=== PATIENT | female | born 1985 | race Caucasian/White ===

== ENCOUNTER 2024-11-23 21:29 | Emergency (ER) | payer BC, SELFPAY ==
[2024-11-23 21:31] VITALS: BP 182/105
[2024-11-23 22:00] VITALS: BP 157/98
[2024-11-23 23:21] VITALS: BP 138/108
[2024-11-23 23:40] VITALS: BMI 23.7
[2024-11-23 23:47] LABS: Hematocrit 43.9 % (37.0-47.0); Hemoglobin 15.2 g/dL (12.0-16.0); Mean Corp Hgb Conc. 34.6 g/dL (33.0-37.0); Mean Corpuscular Volume 87.5 fL (81.0-99.0); Nucleated Red Blood Cells % 0 %; Platelet Count 280 10^3/uL (130-400); Red Cell Dist. Width 11.4 % (11.5-14.5)
[2024-11-23 23:59] LABS: ALT (SGPT) 16 U/L (0-35); AST (SGOT) 16 U/L (14-36); Albumin 4.7 g/dl (3.5-5.0); Alkaline Phosphatase 73 U/L (38-126); Blood Urea Nitrogen 17 mg/dl (7-17); Calcium 9.9 mg/dl (8.4-10.2); Carbon Dioxide 25 mmol/L (22-30); Chloride 106 mmol/L (98-107); Estimated Creatinine Clearance 62 ml/min; Glucose 97 mg/dl (70-99); Potassium 4.0 mmol/L (3.5-5.1); Sodium 137 mmol/L (135-145); Total Protein 7.0 g/dl (6.3-8.2); eGFR > 60.00
[2024-11-24 00:04] VITALS: BP 116/102
[2024-11-24 00:20] VITALS: BP 152/96
[2024-11-24 01:06] VITALS: BP 134/92
--- NOTE | 2024-11-24 01:14 | ED.GENMED ---
History of Present Illness
General
Chief Complaint: Headache
Source: patient
Time Seen by Provider: 11/24/24 00:03
History of Present Illness
History of Present Illness:
38-year-old female with past medical history of migraines and hypertension presenting to the ER for evaluation after she was experiencing a right sided frontal headache throughout the day today, went home and was watching television with her
children when she developed blurred vision out of the left eye which lasted for around an hour, has since subsided and is asymptomatic otherwise. Patient states that she took her blood pressure and noticed that it was significantly elevated which
is why she decided to come to the ER this evening. She notes that she is on Nebivolol daily and reports good compliance with this. She states that her elevated blood pressures started when she was and despite not being any longer
remained hypertensive. She denies any chest pain, shortness of breath, focal weakness or numbness, neck pain or stiffness, fevers or infectious symptoms.
Past History
Past History
ED Past Medical History: Asthma (Allergie induced), GERD, HTN and Other (IBS, Migraines, PNA,)
ED Past Surgical History: Orthopedic
Social History
Tobacco: Non-smoker
Alcohol: Occasional
Drug: None
Personal:
Living: with family
Review of Systems
Review of Systems
All Other Systems: ROS reviewed and negative except as documented in HPI and ROS
Phy Exam
Physical Exam
Physical Exam:
GENERAL: Alert , in no apparent distress
VITAL SIGNS: Repeat blood pressure 156/92 at time of my exam
HEAD: Normocephalic atraumatic
EYE: conjunctiva clear, pupils 4mm, EOMI, gross vision intact
NECK: Supple
ENT: o/p clr, mmm.
CARDIAC: Regular rate and rhythm
LUNGS: Clear breath sounds bilaterally, no acute respiratory distress, no wheezes/rales/rhonchi
NEUROLOGICAL: Alert and oriented
SKIN: Warm and dry, skin intact.
MUSCULOSKELETAL: well perfused.
PSYCH: Normal and appropriate interaction.
Scores
Heart Failure Risk
Heart Failure Risk Score: Not Applicable
Heart Score for Chest Pain Patients
STEMI patient?: Not applicable
Withdrawal Assessment of Alcohol
Withdrawal Assessment Completed?: Not applicable
Course
Orders/Labs/Results
Orders:
Orders
11/23/24 21:36
EKG [Electrocardiogram (*1)] Urgent
Reason for Study: Hypertension, Benign
EKG- Treatment ONCE
11/23/24 23:31
Complete Blood Count/With Diff Urgent
Comprehensive Metabolic Panel Urgent
11/24/24 00:24
CT Head W/o Iv Contrast Urgent
Comment:
Reason For Exam: headache, right sided, left vision change, HTN
Abnormal Lab Results
11/23/24
23:31
RDW 11.4 L %
(11.5-14.5)
Creatinine 1.1 H mg/dL
(0.6-1.0)
11/23/24 23:31
11/23/24 23:31
Vital Signs
Initial and Last Documented VS:
Initial Vital Signs
Temp Pulse Resp BP Pulse Ox
98.5 F 72 17 182/105 100
11/23/24 21:31 11/23/24 21:31 11/23/24 21:31 11/23/24 21:31 11/23/24 21:31
Last Documented Vital Signs
Temp Pulse Resp BP Pulse Ox
98.5 F 63 17 134/92 100
11/23/24 21:31 11/24/24 00:35 11/24/24 00:35 11/24/24 01:06 11/24/24 01:20
MDM/Problems Addressed
Differential Diagnosis Includes:
HTN urgency
HTN emergency
CVA/TIA
Seizure
ICH
Uncontrolled HTN
Renal dysfunction
ACS
MDM/Problems Addressed:
38-year-old female presents the ER for evaluation after she experienced a normal right-sided frontal headache for her but this evening developed transient left eye blurriness, was noted to be very hypertensive at that time. Patient arrives to the
ER still hypertensive but at time of my exam her blood pressure had significantly improved and symptoms are now resolved. Labs initiated in triage are reassuring. Will add on head CT to further evaluate. Discussed dietary and lifestyle
modifications with the patient, patient may need blood pressure medication adjustment however she will keep a log of her blood pressures of the next few days and follow-up with her primary care provider following. Disposition pending.
Chronic conditions affecting care: HTN
Acute Exacerbation and/or Progression of Chronic Illness: HTN
*Radiology
Radiology exam reviewed: radiology read reviewed
*Pulse Oximetry
SaO2: 100
Oxygen Mode of Delivery: Room air
Patient hypoxic: no
*EKG
Heart Rate: 65
Rate: normal
Rhythm: sinus
Evans: normal axis
Ischemia: no ischemia
*Staff Appraiser Interpretation
Rate: normal
Heart Rate: 70
Rhythm: sinus
*Critical Care Note
Total Time (30-74mins, 75-104mins- exclusive of procedures): Not Applicable
Patient Management
Escalation/DeEscalation of care consider admission/obs:
CT without evidence for acute findings. Patient's blood pressure continues to downtrend, she reports feeling well. Feels comfortable being discharged home. Will follow-up with primary care provider. Aware of return precautions to the ER.
ED Attending Note
-
Portions of this chart may have been created with voice recognition software.� Occasional wrong word or��sound alike� substitutions may have occurred due to the inherent limitations of voice recognition software.
Discharge Plan
Departure
Patient Disposition: Home (Routine Discharge)
Date of Disposition: 11/24/24
Time of Disposition: 01:35
Patient with high blood pressure during this ER visit?: Yes
Discharge Problem:
Hypertension
Instructions: High blood pressure - ED (DC)
Prescriptions:
No Action
Valtrex
500 mg PO DAILY
nebivolol 10 mg Tablet
10 mg PO DAILY
Trintellix 5 mg Tablet
5 mg PO DAILY
Referrals:
Lazaro Echeverria DO [Family Provider, Internal Medicine]
Interventions
Interventions:
*Risk Screen - Suicide Last Done: 11/23/24 21:31
*General Assessment Last Done: 11/23/24 21:31
*Neglect/Abuse Screening Last Done: 11/23/24 21:31
*ED COVID-19 Vaccine History Last Done: 11/23/24 21:31
*Nursing Disposition Last Done: 11/24/24 01:42
ED- Neurological Assessment Last Done: 11/23/24 23:40
Discharge Date and Time
Discharge Date/Time: 11/24/24 01:46
Print Language: YAKUT
== END 2024-11-24 01:46 | disposition home or self-care (01) ==
LOC: EMR 21:29
PROVIDERS: EMERGENCY PHYSICIAN Student in an Organized Health Care Education/Training Program; FAMILY PHYSICIAN Internal Medicine
DX: I10 Essential (primary) hypertension (principal); J45.909 Unspecified asthma, uncomplicated; Z79.899 Other long term (current) drug therapy
CPT/HCPCS: 99284; 70450; 80053; 85025; 93005